=== PATIENT | male | born 1985 | race Caucasian/White ===

== ENCOUNTER 2016-10-26 18:57 | Emergency (ER) | payer OTHER ==
[~2016-10-26] VITALS: Ht 172.7 cm; Wt 152.0 kg
[~2016-10-26 18:57] MED LIST: CLIN-73 PO; CLON-379 PO; HYDR-3498 PO; HYDR-906 PO; IBUP-1542 PO; LORA1TAB PO
[2016-10-26 19:03] VITALS: Ht 172.7 cm; Wt 152.0 kg
[2016-10-26] MEDS ORDERED: IBUP-1542 PO (19:44)
[2016-10-26] MEDS ORDERED: CLIN-73 PO (19:44)
--- NOTE | 2016-10-26 19:51 | ERD ---
ER Documentation Chief Complaint Date/Time DATE: 10/26/16 TIME: 19:46 Chief Complaint abscess inner right thight x 1 week ago; no fever complaint HPI 31-year-old male presents here in emergency department for complaints of bumps redness and swelling the bilateral thigh area, patient has history of heroin drug abuse, injected on both thighs. Started having redness and swelling one week ago. Describes the pain as throbbing pain, 6/10 accompanied with erythema, worst upon touching the area. Patient denies any fever or chills. Patient did not take any medication for pain. Patient has the same type of symptoms before, diagnosed of a soft tissue abscess. Patient states the clindamycin helped him before. ROS All systems reviewed and are negative except as per history of present illness. Medications Home Meds Active Scripts Ibuprofen* (Motrin*) 600 Mg Tab, 600 MG PO Q6H Y for PAIN AND OR ELEVATED TEMP, #30 TAB Prov:DIEGO PADRON NP 10/26/16 Clindamycin Hcl* (Clindamycin Hcl*) 300 Mg Capsule, 300 MG PO TID for 10 Days, CAP Prov:DIEGO PADRON NP 10/26/16 Clindamycin Hcl* (Clindamycin Hcl*) 300 Mg Capsule, 300 MG PO TID for 10 Days, CAP Prov:DIEGO PADRON NP 04/27/16 Hydrocodone/Acetaminophen ([place] 5-325 Tablet) 1 Each Tablet, 1 TAB PO Q6H Y for PAIN, #7 TAB Prov:DIEGO PADRON NP 04/27/16 Ibuprofen* (Motrin*) 600 Mg Tab, 600 MG PO Q6H Y for PAIN AND OR ELEVATED TEMP, #30 TAB Prov:DIEGO PADRON NP 04/27/16 Clonidine Hcl* (Clonidine Hcl*) 0.1 Mg Tab, 0.1 MG PO Q6 Y for CONTROL WITHDRAWAL SYMPTOMS, #20 TAB Prov:AISSATOU LEE 03/22/16 Lorazepam* (Lorazepam*) 1 Mg Tablet, 1 MG PO Q8H Y for ANXIETY, #20 TAB Prov:AISSATOU LEE 03/22/16 Hydrocodone Bit-Acetaminophen* ([place]*) 5-325 Mg Tab, 1 TAB PO Q6 Y for PAIN, # 20 TAB Prov:PATRICIO HARDY I. CAMP COORDINATOR 08/11/15 Clindamycin Hcl* (Clindamycin Hcl*) 300 Mg Capsule, 450 MG PO TID for 10 Days, CAP Prov:PATRICIO HARDY I. CAMP COORDINATOR 08/11/15 Allergies Allergies: Coded Allergies: No Known Drug Allergy (Verified Allergy, Mild, 08/13/11) PMhx/Soc Medical and Surgical Hx: pt denies Medical Hx, pt denies Surgical Hx History of Surgery: No Anesthesia Reaction: No Hx Neurological Disorder: No Hx Respiratory Disorders: No Hx Cardiac Disorders: No Hx Psychiatric Problems: No Hx Miscellaneous Medical Probl: No Hx Alcohol Use: No Hx Substance Use: Yes Hx Tobacco Use: Yes Smoking Status: Heavy tobacco smoker FmHx Family History: No coronary disease, No diabetes, No other Physical Exam Vitals Vital Signs Date Time Temp Pulse Resp B/P Pulse Ox O2 Delivery O2 Flow Rate FiO2 10/26/16 19:03 97.7 83 18 182/105 98 Physical Exam GENERAL: The patient is well developed and appropriate for usual state of health, in no apparent distress. CHEST: Clear to auscultation bilaterally. There are no rales, wheezes or rhonchi. HEART: Regular rate and rhythm. No murmurs, clicks, rubs or gallops. No S3 or S4. ABDOMEN: Soft, nontender and nondistended. Good bowel sounds. No rebound or guarding. No gross peritonitis. No gross organomegaly or masses. No Schwarz sign or McBurney point tenderness. BACK: No midline or flank tenderness. EXTREMITIES: Equal pulses bilaterally. There is no peripheral clubbing, cyanosis or edema. No focal swelling or erythema. Full range of motion. Grossly neurovascularly intact. NEURO: Alert and oriented. Cranial nerves 2-12 intact. Motor strength in all 4 extremities with 5/5 strength. Sensation grossly intact. Normal speech and gait. SKIN: Erythema and induration noted on bilateral thigh area nonfluctuant at this time, tender on palpation. There is no apparent rash or petechia. The skin is warm and dry. HEMATOLOGIC AND LYMPHATIC: There is no evidence of excessive bruising or lymphedema. No gross cervical, axillary, or inguinal lymphadenopathy. Results 24 hrs Current Medications Medications (Trade) Dose Ordered Sig/Cherri Route PRN Reason Start Time Stop Time Status Last Admin Dose Admin Clindamycin Phosphate (Cleocin) 600 mg ONCE ONCE IM 10/26/16 20:00 10/26/16 20:01 Clindamycin was given here in emergency department, tolerated medication well. Procedures/MDM Medical decision making: Patient's symptoms most likely consistent with a soft tissue abscess, this time, incision and drainage not indicated at this time, not fluctuant, patient was advised to return in 2 days for reevaluation of symptoms, patient was given antibiotics, no symptoms of neurovascular compromise , sepsis, no symptoms of DVT. Patient was given for clindamycin, ibuprofen, return in 2 days for reevaluation of symptoms. Patient was advised to return to emergency department for any worsening symptoms. Departure Diagnosis: Primary Impression: Soft tissue abscess Condition: Stable Patient Instructions: Abscess, Antiobiotic Treatment Only Additional Instructions: avoid injecting heroin on affected area, take meds, return in 2 days DIEGO PADRON NP Oct 26, 2016 19:51
[2016-10-26] MEDS ORDERED: CLINDAMYCIN 300 MG INJ IM ONE (20:00)
== END 2016-10-26 20:43 | disposition home or self-care (01) ==
LOC: FTE 18:57
DX: L02.416 Cutaneous abscess of left lower limb (principal); L02.415 Cutaneous abscess of right lower limb; F17.210 Nicotine dependence, cigarettes, uncomplicated
CPT/HCPCS: 96372; Z7502; Z7610

== ENCOUNTER 2016-11-13 16:11 | Emergency (ER) | payer SELFPAY ==
[~2016-11-13] VITALS: Ht 172.7 cm; Wt 145.0 kg
[2016-11-13 16:14] VITALS: Ht 172.7 cm; Wt 145.0 kg
== END 2016-11-13 20:54 | disposition left against medical advice (07) ==
LOC: E/R 16:11
DX: Z53.21 Procedure and treatment not carried out due to patient leaving prior to being seen by health care provider (principal)

== ENCOUNTER 2017-03-09 11:44 | Inpatient (IN) | payer OTHER ==
[~2017-03-09] VITALS: Ht 172.7 cm; Wt 170.5 kg
[2017-03-09] VITALS (28 sets, daily range): BP systolic 95–141; BP diastolic 54–124; PULSE 56–192; RESP 14–26; TEMP 98.1; Ht 172.7 cm; Wt 170.5 kg
[2017-03-09] MEDS ORDERED: SOD CHLORIDE 0.9% 1,000 ML IV STA (11:57)
[2017-03-09] MEDS ORDERED: PROCAINAMIDE IV ONE ×3 (12:00→14:00)
[2017-03-09] MEDS ORDERED: DEXTROSE 5% IV ONE ×3 (12:00→14:00)
[2017-03-09] MEDS ORDERED: MAGNESIUM SULFATE 2 GM/50 ML 50 ML IVPB ONE (13:00)
[2017-03-09] MEDS ORDERED: METH40TA PO (13:01)
[2017-03-09 13:02] LABS: BASOPHIL # 0.1 10^3/ul (0.0-0.1); BASOPHILS % 0.6 % (0.0-2.0); EOSINOPHILS # 0.1 10^3/ul (0.0-0.5); HEMATOCRIT 50.4 % (42.0-52.0); HEMOGLOBIN 16.3 g/dl (14.0-18.0); LYMPHOCYTES # 3.3 10^3/ul (0.8-2.9); LYMPHOCYTES % 27.2 % (15.0-51.0); MEAN CORPUSCULAR HEMOGLOBIN 29.1 pg (29.0-33.0); MEAN CORPUSCULAR HGB CONC 32.3 g/dl (32.0-37.0); MEAN CORPUSCULAR VOLUME 89.8 fl (82.0-101.0); MEAN PLATELET VOLUME 10.7 fl (7.4-10.4); MONOCYTE # 1.1 10^3/ul (0.3-0.9); MONOCYTES % 9.2 % (0.0-11.0); NEUTROPHIL # 7.4 10^3/ul (1.6-7.5); NEUTROPHILS % 61.7 % (39.0-77.0); PLATELET COUNT 284 10^3/UL (140-415); RED BLOOD COUNT 5.61 10^6/ul (4.70-6.10); RED CELL DISTRIBUTION WIDTH 13.8 % (11.5-14.5); WHITE BLOOD COUNT 11.9 10^3/ul (4.8-10.8)
[2017-03-09 13:17] LABS: PROTIME 13.2 Sec (12.2-14.2)
[2017-03-09 13:24] LABS: ANION GAP 17 (8-16); BLOOD UREA NITROGEN 12 mg/dl (7-20); CALCIUM 9.5 mg/dl (8.4-10.2); CARBON DIOXIDE 29 mmol/L (21-31); CHLORIDE 102 mmol/L (97-110); CREATININE 0.81 mg/dl (0.61-1.24); GLUCOSE 86 mg/dl (70-220); POTASSIUM 3.7 mmol/L (3.5-5.1); SODIUM 144 mmol/L (135-144)
[2017-03-09] MEDS ORDERED: LORAZEPAM 2 MG INJ IV ONE ×2 (13:30→16:30)
[2017-03-09 13:39] LABS: TROPONIN-I < 0.012 ng/ml (0.00-0.12)
--- NOTE | 2017-03-09 14:21 | ERA ---
ER Documentation Chief Complaint Date/Time DATE: 03/09/17 TIME: 14:13 Chief Complaint drove self here, c/o heart palpitations since 0900 today, pt a&ox4 ROS All systems reviewed and are negative except as per history of present illness. Medications Home Meds Reported Medications Methadone Hcl (Methadone Hcl) 40 Mg Tablet.jose luis, 80 MG PO, TAB 03/09/17 Discontinued Scripts Ibuprofen* (Motrin*) 600 Mg Tab, 600 MG PO Q6H Y for PAIN AND OR ELEVATED TEMP, #30 TAB Prov:DIEGO PADRON LIGHT INDUSTRIAL 10/26/16 Clindamycin Hcl* (Clindamycin Hcl*) 300 Mg Capsule, 300 MG PO TID for 10 Days, CAP Prov:DIEGO PADRON NP 10/26/16 Clindamycin Hcl* (Clindamycin Hcl*) 300 Mg Capsule, 300 MG PO TID for 10 Days, CAP Prov:DIEGO PADRON NP 04/27/16 Hydrocodone/Acetaminophen ([place] 5-325 Tablet) 1 Each Tablet, 1 TAB PO Q6H Y for PAIN, #7 TAB Prov:DIEGO PADRON NP 04/27/16 Ibuprofen* (Motrin*) 600 Mg Tab, 600 MG PO Q6H Y for PAIN AND OR ELEVATED TEMP, #30 TAB Prov:DIEGO PADRON LIGHT INDUSTRIAL 04/27/16 Clonidine Hcl* (Clonidine Hcl*) 0.1 Mg Tab, 0.1 MG PO Q6 Y for CONTROL WITHDRAWAL SYMPTOMS, #20 TAB Prov:AISSATOU LEE 03/22/16 Lorazepam* (Lorazepam*) 1 Mg Tablet, 1 MG PO Q8H Y for ANXIETY, #20 TAB Prov:AISSATOU LEE 03/22/16 Hydrocodone Bit-Acetaminophen* ([place]*) 5-325 Mg Tab, 1 TAB PO Q6 Y for PAIN, # 20 TAB Prov:PATRICIO HARDY I. LIGHT INDUSTRIAL 08/11/15 Clindamycin Hcl* (Clindamycin Hcl*) 300 Mg Capsule, 450 MG PO TID for 10 Days, CAP Prov:PATRICIO HARDY I. LIGHT INDUSTRIAL 08/11/15 Allergies Allergies: Coded Allergies: No Known Drug Allergy (Verified Allergy, Mild, 03/09/17) PMhx/Soc History of Surgery: No Anesthesia Reaction: No Hx Neurological Disorder: No Hx Respiratory Disorders: No Hx Cardiac Disorders: No (IRREGULAR HEART RATE) Hx Psychiatric Problems: No Hx Miscellaneous Medical Probl: No Hx Alcohol Use: No Hx Substance Use: Yes (HEROIN, METADONE) Hx Tobacco Use: Yes Smoking Status: Current every day smoker Physical Exam Vitals Vital Signs Date Time Temp Pulse Resp B/P Pulse Ox O2 Delivery O2 Flow Rate FiO2 03/09/17 14:30 98.1 180 20 150/106 100 Room Air 03/09/17 14:00 98.1 160 29 141/99 100 Room Air 03/09/17 13:00 204 29 144/133 100 Room Air 03/09/17 12:45 171 24 143/127 100 Room Air 03/09/17 12:30 174 17 138/108 100 Room Air 03/09/17 12:00 98.1 177 21 148/118 100 Physical Exam Const: [] Head: Atraumatic Eyes: Normal Conjunctiva ENT: Normal External Ears, Nose and Mouth. Neck: Full range of motion..~ No meningismus. Resp: Clear to auscultation bilaterally Cardio: Regular rate and rhythm, no murmurs Abd: Soft, non tender, non distended. Normal bowel sounds Skin: No petechiae or rashes Back: No midline or flank tenderness Ext: No cyanosis, or edema Neur: Awake and alert Psych: Normal Mood and Affect Result Diagram: 03/09/17 1235 03/09/17 1235 Results 24 hrs Laboratory Tests Test 03/09/17 12:35 03/09/17 13:23 White Blood Count 11.910^3/ul Red Blood Count 5.6110^6/ul Hemoglobin 16.3g/dl Hematocrit 50.4% Mean Corpuscular Volume 89.8fl Mean Corpuscular Hemoglobin 29.1pg Mean Corpuscular Hemoglobin Concent 32.3g/dl Red Cell Distribution Width 13.8% Platelet Count 63149^3/UL Mean Platelet Volume 10.7fl Neutrophils % 61.7% Lymphocytes % 27.2% Monocytes % 9.2% Eosinophils % 1.0% Basophils % 0.6% Nucleated Red Blood Cells % 0.0/100WBC Neutrophils # 7.410^3/ul Lymphocytes # 3.310^3/ul Monocytes # 1.110^3/ul Eosinophils # 0.110^3/ul Basophils # 0.110^3/ul Nucleated Red Blood Cells # 0.010^3/ul Prothrombin Time 13.2Sec Prothrombin Time Ratio 1.0 INR International Normalized Ratio 1.00 Activated Partial Thromboplast Time 26.0Sec Sodium Level 144mmol/L Potassium Level 3.7mmol/L Chloride Level 102mmol/L Carbon Dioxide Level 29mmol/L Anion Gap 17 Blood Urea Nitrogen 12mg/dl Creatinine 0.81mg/dl Glucose Level 86mg/dl Calcium Level 9.5mg/dl Troponin I < 0.012ng/ml Urine Opiates Screen Positive Urine Barbiturates Negative Urine Amphetamines Screen Positive Urine Benzodiazepines Screen Negative Urine Cocaine Screen Negative Urine Cannabinoids Positive Current Medications Medications (Trade) Dose Ordered Sig/Cherri Route PRN Reason Start Time Stop Time Status Last Admin Dose Admin Sodium Chloride 1,000 ml @ 1,000 mls/hr Q1H STAT IV 03/09/17 11:57 03/09/17 12:56 DC 03/09/17 12:18 Procaine HCl 100 mg/Dextrose 50.2 ml @ 100.4 mls/ hr ONCE ONCE IV 03/09/17 12:00 03/09/17 12:29 Cancel Procaine HCl 1500 mg/Dextrose 53 ml @ 100.4 mls/ hr ONCE ONCE IV 03/09/17 12:12 03/09/17 12:31 DC 03/09/17 12:22 Magnesium Sulfate 50 ml @ 25 mls/hr ONCE ONCE IVPB 03/09/17 13:00 03/09/17 14:59 DC 03/09/17 12:55 Diltiazem HCl (Cardizem-D5W 125 Mg/125 ml Drip) 125 ml @ 5 mls/hr TITRATE IV 03/09/17 13:30 03/09/17 14:45 Lorazepam 1 mg 1 mg ONCE ONCE IV 03/09/17 13:30 03/09/17 13:31 DC 03/09/17 13:26 Procaine HCl/ Dextrose (Procainamide/ D5W) 51.6 ml @ 103.2 mls/ hr ONCE ONCE IV 03/09/17 14:00 03/09/17 14:29 DC 03/09/17 13:54 Procedures/MDM EMERGENT LABS AND DIAGNOSTIC STUDIES: Lab Results above were reviewed and interpreted by me. CBC: Mild leukocytosis BMP: No evidence of electrolyte abnormality, renal failure, hypoglycemia Troponin within normal limits urine drug screen pending 12-lead EKG was interpreted by Peggy Brady MD: A. fib with RVR with short runs of nonsustained ventricular tachycardia No acute ST or T wave changes suggestive of acute ischemia or STEMI. Radiology Results as interpreted by Radiology below were reviewed by Henry Brady MD: Chest x-ray shows low lung volumes with bibasilar atelectasis, no other acute abnormalities Initial Nursing notes reviewed. Previous Medical Records requested via the Electronic Health Record. EMERGENCY DEPARTMENT COURSE / MEDICAL DECISION MAKING: Patient is presenting with atrial fibrillation with RVR and short runs of ventricular tachycardia. Given his history and his EKG, I have a suspicion for underlying WPW. 2 large-bore IVs were placed. Defibrillator pads were placed. Patient was started on IV fluids. His blood pressure is within normal limits , so he is stable. Chest x-ray did not show evidence of acute heart failure. Troponin was within normal limits. Patient's tachycardia is likely secondary to the fact that he already has some electrophysiologic problem in his heart in addition to his excessive caffeine use today and cocaine use. Given my concern for WPW, procainamide 15 milligrams per kilogram load was given. I spoke with Dr. Encarnacion, the advertising rep on-call, who recommended a diltiazem drip. I voiced to him my concerns about this as AV tiesha blockade may throw the patient into VT or VF. However he thinks that it is likely safe. Patient has been started on diltiazem drip and responding appropriately. Patient will need admission to the ICU for further workup and management. Accepting Care Team: Current data and ongoing care discussed. Time: Time of admission Primary Provider: Dr. Ramiro Oseguera Consulting: Dr. Encarnacion Outstanding Data: Drug screen Critical Care Time: 50 minutes Treatments/Evaluations: Close monitoring and treatment of unstable vital signs, cardiorespiratory, and neurologic status, while maintaining tight balance of fluid, respiratory, and cardiac interventions. This time includes discussing the case with the patient and the patients family. This time does not include all procedures stated elsewhere in this record. This time also includes reviewing old records, labs and radiological studies. This time includes examining and re-examining the patient. Additionally, this time also includes arranging care with admitting and consulting physicians. Departure Diagnosis: Primary Impression: Ventricular tachyarrhythmia Additional Impressions: Atrial fibrillation with RVR Caffeine overdose Condition: Critical BRANDY BRADY MD Mar 09, 2017 14:21
[2017-03-09] MEDS: DILTIAZEM-D5W 125MG/125ML DRIP 125 ML IV SCH (14:45)
[2017-03-09 15:08] LABS: BARBITURATES Negative (NEGATIVE); BENZODIAZEPINES Negative (NEGATIVE); CANNABINOIDS Positive (NEGATIVE); COCAINE Negative (NEGATIVE); OPIATES Positive (NEGATIVE)
--- NOTE | 2017-03-09 15:46 | CONS ---
Date/Time of Note Date/Time of Note DATE: 03/09/17 TIME: 15:40 Assessment/Plan Assessment/Plan Chief Complaint/Hosp Course 1. Afib with RVR 2. NSVT 3. HTN 4. Drug including cocaine use 5. smoker 6./ obesity. Recommendations: I will continue with a Cardizem drip and adjusted increase the dose. Beta- yoni will be initiated. To be correct as needed thyroid function test will be checked as well bradycardia has been ordered to be done as the number personally reviewed. I will also give the patient digoxin for control heart rate better. We will continue to closely monitor him in the ICU. More than 40 minutes critical care time was measured at this patient excluding procedures. Problems: Consultation Date/Type/Reason Admit Date/Time Date of Consultation: Mar 09, 2017 Type of Consultation: CARDIOLOGY Reason for Consultation arrhythmia Referring Provider: BRANDY LUCAS MD Hx of Present Illness Thank you for this referral. This is a 30-year-old gentleman with history of drug abuse, previously and he remained currently on methadone, history of positive palpitation as a child, as well as obesity who came to emergency room with complaint of palpitation. Patient said last night he "partied a lot and went to the Street bar" he has had alcohol as well as cocaine last night. This morning it was time he also had multiple cups of coffee as well. He was elbowed when he felt tired fatigue and palpitation came to emergency room. In the emergency room was noted to be tachycardia. He has had multiple runs of nonsustained V. tach episodes appear to be atrial fibrillation with rapid ventricular response. Patient was given procainamide by ER physician with no help. After discussion with me was started on Cardizem. He is still in atrial fibrillation heart is elevated but blood pressure has improved now. Medication At Home: He is on methadone per his report. He also has been taking weight loss pills which has been getting up from his father Social history: He does actively smokes. He does not use alcohol. He has used cocaine last night. He has been ex-heroin user which says that he has quit over the past 4 months. Is currently taking methadone. Past medical history as above only for his obesity. He denies all others to Family history denies any eloquently artery disease. Review of system as above only. He said that he is also lost weight recently due to the weight loss pills Social History Smoking Status: Current every day smoker Exam/Review of Systems Vital Signs Vitals Vital Signs Date Time Temp Pulse Resp B/P Pulse Ox O2 Delivery O2 Flow Rate FiO2 03/09/17 14:30 98.1 180 20 150/106 100 Room Air Exam General: no acute distress. obese. HEENT: NC/AT. pupils are equal. round. NECK: NO JVD. no stridor. CV: irregularly irregular. . systolic murmur; no gallop or rubs. PULM: no wheezing or rhonchi. GI: SOFT, obese. NT, ND, no rebound or guarding Extremity: trace B/L LE edema. no clubbing. neuro: awake and alert, OX3. Psych: calm and pleasant rectal: deferred : normal ECG reviewed; AFIB RVR, wiht runs of NSVT Results Result Diagram: 03/09/17 1235 03/09/17 1235 Results 24 hrs Laboratory Tests Test 03/09/17 12:35 03/09/17 13:23 White Blood Count 11.9 H Red Blood Count 5.61 Hemoglobin 16.3 Hematocrit 50.4 Mean Corpuscular Volume 89.8 Mean Corpuscular Hemoglobin 29.1 Mean Corpuscular Hemoglobin Concent 32.3 Red Cell Distribution Width 13.8 Platelet Count 284 Mean Platelet Volume 10.7 #H Neutrophils % 61.7 Lymphocytes % 27.2 Monocytes % 9.2 Eosinophils % 1.0 Basophils % 0.6 Nucleated Red Blood Cells % 0.0 Neutrophils # 7.4 Lymphocytes # 3.3 H Monocytes # 1.1 H Eosinophils # 0.1 Basophils # 0.1 Nucleated Red Blood Cells # 0.0 Prothrombin Time 13.2 Prothrombin Time Ratio 1.0 INR International Normalized Ratio 1.00 Activated Partial Thromboplast Time 26.0 Sodium Level 144 Potassium Level 3.7 Chloride Level 102 Carbon Dioxide Level 29 Anion Gap 17 H Blood Urea Nitrogen 12 Creatinine 0.81 Glucose Level 86 Calcium Level 9.5 Troponin I < 0.012 Urine Opiates Screen Positive Urine Barbiturates Negative Urine Amphetamines Screen Positive Urine Benzodiazepines Screen Negative Urine Cocaine Screen Negative Urine Cannabinoids Positive Medications Medications Current Medications Diltiazem HCl (Cardizem-D5W 125 Mg/125 ml Drip) 125 ml @ 5 mls/hr TITRATE IV Last administered on 03/09/17t 14:45; Admin Dose 5 MLS/HR; Start 03/09/17 at 13: 30 RENÉE SAMAYOA MD Mar 09, 2017 15:46
[2017-03-09] MEDS ORDERED: MAGNESIUM HYDROXIDE 30ML CUP PO PRN (16:00)
[2017-03-09] MEDS ORDERED: NITROGLYCERIN (SL) 0.4 MG TAB SL PRN (16:00)
[2017-03-09] MEDS ORDERED: morphine 2 MG INJ IV PRN (16:00)
[2017-03-09] MEDS ORDERED: ONDANSETRON 4 MG INJ IV PRN (16:00)
[2017-03-09] MEDS ORDERED: NACL 0.9% 3 ML SYG IV SCH (16:00)
[2017-03-09] MEDS ORDERED: DOCUSATE SODIUM 100 MG CAP PO PRN (16:00)
[2017-03-09] MEDS ORDERED: DIGOXIN 500 MCG INJ IV ONE (16:00)
[2017-03-09] MEDS ORDERED: LORAZEPAM 2 MG INJ IV PRN ×2 (16:00→17:00)
[2017-03-09] MEDS ORDERED: ALBUTEROL/IPRATROPIUM (NEB) 3 ML AMP HHN PRN (16:00)
[2017-03-09] MEDS ORDERED: HYDROCODONE/APAP (5/325) TAB PO PRN (16:00)
[2017-03-09] MEDS ORDERED: ACETAMINOPHEN 325 MG TAB PO PRN (16:00)
[2017-03-09] MEDS ORDERED: AMIODARONE 900 MG in DEXTROSE 5% 482 ML IV SCH ×2 (16:00→19:30)
[2017-03-09] MEDS ORDERED: NA PHOSPHATE/BIPHOS 133 ML ENEMA PR PRN (16:00)
[2017-03-09] MEDS ORDERED: PROPRANOLOL 20 MG TAB PO ONE (16:00)
[2017-03-09] MEDS ORDERED: hydrALAzine 20 MG INJ IV PRN (16:00)
--- NOTE | 2017-03-09 16:22 | HP ---
Date/Time of Note Date/Time of Note DATE: 03/09/17 TIME: 16:18 Assessment/Plan VTE Prophylaxis VTE Prophylaxis Intervention: heparin Lines/Catheters IV Catheter Type (from [facility]): Saline Lock Assessment/Plan Chief Complaint/Hosp Course Assessment and plan: 32-year-old male coming in with palpitations, U tox positive for cocaine, methamphetamine, opiates, with signs of non-sustained V. tach, A. fib with RVR, hypertensive urgency, on Cardizem drip. 1. Palpitations: Likely secondary to patient's drug toxicity, particularly cocaine is thought to be the culprit here. U tox also positive for amphetamines and opiates. Patient does take methadone as outpatient. -Continue Cardizem IV drip per cardiology recommendations, as well as digoxin. Avoid beta blockers. -For now we will increase Ativan to q one hour as needed agitation, and consider phentolamine given cocaine toxicity as well -Monitor for any further arrhythmias in the intensive care unit for now, continue to monitor heart rate and blood pressure very carefully -Monitor for signs of withdrawal, continue IV fluids. Also check TSH, A1c, lipid panel. -Antiemetics as needed -Hold methadone for now 2. 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 GI prophylaxis: PPI Problems: HPI/ROS Admit Date/Time Admit Date/Time Hx of Present Illness 30-year-old gentleman with past medical history of drug abuse, on methadone, history of positive palpitation as a child, "heart condition " as well as obesity who came to emergency room with complaint of palpitation. Apparently patient said last night he "partied a lot and went to the Street bar" he has had alcohol as well as cocaine last night. This morning he also had multiple cups of coffee as well. Patient felt palpitations came to emergency room. In the emergency room was noted to be tachycardia. He has had multiple runs of nonsustained V. tach episodes and appeared to be in atrial fibrillation with rapid ventricular response. Patient was given procainamide by ER physician with no help. After discussion with cardiology consult he was started on Cardizem. His blood pressure has improved now, but his diastolic blood pressure still significantly elevated. Denied any upper or lower GI bleeding, fever chills, frequency or dysuria or hematuria, no abdominal pain, no headaches. PMH/Family/Social Past Surgical History Past Surgical Hx: other (Hand surgery) Family History Significant Family History: other (Mother: Diabetes, hypertension) Social History Alcohol Use: none Smoking Status: Current every day smoker Drug Use: cocaine, other (Methamphetamine, opiates) Exam/Review of Systems Vital Signs Vitals Vital Signs Date Time Temp Pulse Resp B/P Pulse Ox O2 Delivery O2 Flow Rate FiO2 03/09/17 15:15 148 20 130/105 98 Room Air 03/09/17 15:00 98.1 Exam Exam General: Lying in bed, trying to talk on cell phone, no acute distress HEENT: Pupils equal round reactive to light, extraocular muscles are intact Neck: Supple Cardiovascular: S1-S2 heard, tachycardic heart rate Respiratory: Slightly distant breath sounds bilaterally Abdomen: Nontender, nondistended, soft, no rebound or guarding Muscular skeletal: No lower extremity edema bilaterally Neurologic: No focal deficits Labs Result Diagram: 03/09/17 1235 03/09/17 1235 Medications Medications Current Medications Diltiazem HCl (Cardizem-D5W 125 Mg/125 ml Drip) 125 ml @ 5 mls/hr TITRATE IV Last administered on 03/09/17t 14:45; Admin Dose 5 MLS/HR; Start 03/09/17 at 13: 30 Ondansetron HCl (Zofran Inj) 4 mg Q6H PRN IV NAUSEA AND/OR VOMITING; Start at 16:00; Status UNV Acetaminophen (Tylenol Tab) 650 mg Q6H PRN PO PAIN LEVEL 1-3 OR FEVER; Start at 16:00; Status UNV Acetaminophen/ Hydrocodone Bitart ([place] (5/325)) 1 tab Q6H PRN PO MODERATE PAIN LEVEL 4-6; Start 03/09/17 at 16:00; Status UNV Morphine Sulfate (morphine) 2 mg Q4H PRN IV SEVERE PAIN LEVEL 7-10; Start 03/09 at 16:00; Status UNV Docusate Sodium (Colace) 100 mg Q12H PRN PO CONSTIPATION; Start 03/09/17 at 16: 00; Status UNV Magnesium Hydroxide (Milk Of Mag) 30 ml DAILY PRN PO CONSTIPATION; Start at 16:00; Status UNV Sodium Biphosphate/ Sodium Phosphate (Fleet Enema) 133 ml DAILY PRN MD CONSTIPATION; Start 03/09/17 at 16:00; Status UNV Pantoprazole (Protonix Iv) 40 mg DAILY@06 IV ; Start 03/10/17 at 06:00; Status UNV Heparin Sodium (Porcine) 5000 unit 5,000 unit Q12 SC ; Start 03/09/17 at 21:00; Status UNV Sodium Chloride (NS) 1,000 ml @ 100 mls/hr Q10H IV ; Start 03/09/17 at 15:56; Status UNV Hydralazine HCl (Apresoline) 10 mg Q6H PRN IV ELEVATED BLOOD PRESSURE; Start at 16:00; Status UNV Nitroglycerin (Nitroglycerin (Sl Tab) 0.4 Mg) 1 tab Q5M PRN SL ANGINA; Start at 16:00; Status UNV Lorazepam (Ativan) 1 mg ONCE ONCE IV ; Start 03/09/17 at 16:30; Stop 03/09/17 at 16:31; Status UNV Lorazepam (Ativan) 1 mg Q1H PRN IV ANXIETY; Start 03/09/17 at 17:00; Status UNV MARGARITA JAIME Mar 09, 2017 16:22
[2017-03-09 16:26] LABS: HAAIG REFLEX REFLEX FILED
[2017-03-09] MEDS: SOD CHLORIDE 0.9% 1,000 ML IV SCH (16:34)
[2017-03-09 16:49] LABS: CREATINE KINASE 79 IU/L (23-200)
[2017-03-09 16:50] LABS: ALANINE AMINOTRANSFERASE 131 IU/L (13-69); ALBUMIN 4.2 g/dl (3.3-4.9); ALKALINE PHOSPHATASE 89 IU/L (42-121); ANION GAP 18 (8-16); ASPARTATE AMINO TRANSFERASE 87 IU/L (15-46); BILIRUBIN,INDIRECT 0.5 mg/dl (0-1.1); BILIRUBIN,TOTAL 0.5 mg/dl (0.2-1.3); BLOOD UREA NITROGEN 9 mg/dl (7-20); CALCIUM 8.9 mg/dl (8.4-10.2); CARBON DIOXIDE 26 mmol/L (21-31); CHLORIDE 103 mmol/L (97-110); CREATINE KINASE 75 IU/L (23-200); CREATININE 0.58 mg/dl (0.61-1.24); GLUCOSE 91 mg/dl (70-220); MAGNESIUM 2.4 mg/dl (1.7-2.5); POTASSIUM 4.1 mmol/L (3.5-5.1); SODIUM 143 mmol/L (135-144); TOTAL PROTEIN 9.4 g/dl (6.1-8.1)
[2017-03-09 16:56] LABS: ETHANOL < 10.0 mg/dl
[2017-03-09 17:02] LABS: CK-MB 0.88 ng/ml (0.0-2.4); TROPONIN-I < 0.012 ng/ml (0.00-0.12)
[2017-03-09 17:27] LABS: THYROID STIMULATING HORMONE 0.891 MIU/L (0.465-4.680)
[2017-03-09 17:41] LABS: HEPATITIS B CORE ANTIBODY NEGATIVE (NEGATIVE)
[2017-03-09 17:42] LABS: INR 1.03; PROTIME 13.5 Sec (12.2-14.2); PT RATIO 1.1
[2017-03-09 17:43] LABS: PARTIAL THROMBOPLASTIN TIME 27.5 Sec (25.0-35.0)
[2017-03-09] MEDS ORDERED: AMIODARONE 150MG/D5W BOLUS 100 ML ONE (18:41)
[2017-03-09] MEDS ORDERED: AMIODARONE 150MG/D5W BOLUS 100 ML IV ONE (19:00)
[2017-03-09] MEDS: PROPRANOLOL 20 MG TAB PO SCH (20:05)
[2017-03-09] MEDS: HEPARIN 5,000 UNIT/0.5 ML VIAL SC SCH (20:16)
[2017-03-09 23:19] LABS: CREATINE KINASE 60 IU/L (23-200)
[2017-03-09 23:33] LABS: CK-MB 0.96 ng/ml (0.0-2.4); TROPONIN-I < 0.012 ng/ml (0.00-0.12)
[2017-03-10] VITALS (27 sets, daily range): BP systolic 73–131; BP diastolic 57–89; PULSE 53–73; RESP 11–26
[2017-03-10] MEDS: DILTIAZEM-D5W 125MG/125ML DRIP 125 ML IV SCH (01:01)
[2017-03-10] MEDS: SOD CHLORIDE 0.9% 1,000 ML IV SCH (01:57)
[2017-03-10] MEDS ORDERED: METHADONE 10 MG TAB PO SCH ×2 (06:00→09:30)
[2017-03-10] MEDS ORDERED: PANTOPRAZOLE 40 MG INJ IV SCH (06:00)
[2017-03-10 06:20] LABS: BASOPHILS % 0.3 % (0.0-2.0); EOSINOPHILS # 0.1 10^3/ul (0.0-0.5); EOSINOPHILS % 1.3 % (0.0-7.0); HEMATOCRIT 43.3 % (42.0-52.0); HEMOGLOBIN 13.8 g/dl (14.0-18.0); LYMPHOCYTES # 2.4 10^3/ul (0.8-2.9); LYMPHOCYTES % 22.8 % (15.0-51.0); MEAN CORPUSCULAR HEMOGLOBIN 28.8 pg (29.0-33.0); MEAN CORPUSCULAR HGB CONC 31.9 g/dl (32.0-37.0); MEAN CORPUSCULAR VOLUME 90.4 fl (82.0-101.0); MEAN PLATELET VOLUME 11.1 fl (7.4-10.4); MONOCYTE # 0.9 10^3/ul (0.3-0.9); MONOCYTES % 8.3 % (0.0-11.0); NEUTROPHILS % 66.8 % (39.0-77.0); PLATELET COUNT 228 10^3/UL (140-415); RED BLOOD COUNT 4.79 10^6/ul (4.70-6.10); RED CELL DISTRIBUTION WIDTH 13.8 % (11.5-14.5); WHITE BLOOD COUNT 10.3 10^3/ul (4.8-10.8)
[2017-03-10 06:49] LABS: CHOL/HDL RATIO 4.8 RATIO
[2017-03-10 06:50] LABS: ALBUMIN 3.4 g/dl (3.3-4.9); BILIRUBIN,INDIRECT 0.5 mg/dl (0-1.1); BILIRUBIN,TOTAL 0.5 mg/dl (0.2-1.3); TOTAL PROTEIN 7.4 g/dl (6.1-8.1)
[2017-03-10 06:52] LABS: CREATINE KINASE 42 IU/L (23-200)
[2017-03-10 06:53] LABS: ALBUMIN 3.4 g/dl (3.3-4.9); ALBUMIN/GLOBULIN RATIO 0.85; BILIRUBIN,INDIRECT 0.5 mg/dl (0-1.1); BILIRUBIN,TOTAL 0.5 mg/dl (0.2-1.3); CALCIUM 8.5 mg/dl (8.4-10.2); CREATININE 0.66 mg/dl (0.61-1.24); POTASSIUM 4.1 mmol/L (3.5-5.1); TOTAL PROTEIN 7.4 g/dl (6.1-8.1)
[2017-03-10 06:57] LABS: MAGNESIUM 2.2 mg/dl (1.7-2.5); PHOSPHORUS 3.3 mg/dl (2.5-4.9)
[2017-03-10 07:09] LABS: CK-MB 0.84 ng/ml (0.0-2.4); TROPONIN-I < 0.012 ng/ml (0.00-0.12)
[2017-03-10 07:20] LABS: THYROID STIMULATING HORMONE 1.11 MIU/L (0.465-4.680)
[2017-03-10] MEDS: PROPRANOLOL 20 MG TAB PO SCH (09:00)
[2017-03-10] MEDS: HEPARIN 5,000 UNIT/0.5 ML VIAL SC SCH (09:14)
[2017-03-10] MEDS ORDERED: SOD CHLORIDE 0.45% 1,000 ML IV SCH (09:30)
--- NOTE | 2017-03-10 09:33 | PN ---
Date/Time of Note Date/Time of Note DATE: 03/10/17 TIME: 09:28 Assessment/Plan VTE Prophylaxis VTE Prophylaxis Intervention: heparin Lines/Catheters IV Catheter Type (from [facility]): Peripheral IV Urinary Cath still in place: Yes Reason Cath still needed: urinary retention Assessment/Plan Chief Complaint/Hosp Course Assessment and plan: 32-year-old male coming in with palpitations, U tox positive for cocaine, methamphetamine, opiates, with signs of non-sustained V. tach, A. fib with RVR, hypertensive urgency, on Cardizem drip. 1. Palpitations: Likely secondary to patient's drug toxicity, particularly cocaine is thought to be the culprit here. Less smpts now. U tox also positive for amphetamines and opiates. Patient does take methadone as outpatient. Bp and HR improved (actually showing signs of bradycardia). -f/u cardiology recommendations, Avoid beta blockers. - continue Ativan to q one hour as needed agitation, and consider phentolamine given cocaine toxicity as well - continue to monitor heart rate and blood pressure very carefully -Monitor for signs of withdrawal, continue IV fluids. F/u TSH, A1c, lipid panel. -Antiemetics as needed -restart lower dose of methadone today 2. Drug and smoking history: [employer] on cessation, and add nicotine patch -f/u social work consult 3. GI prophylaxis: PPI Critical care time spent on pt care today = 40 min. Problems: Subjective 24 Hr Interval Summary Free Text/Dictation Pt awake andd alert, tolerating diet. VS improved. Exam/Review of Systems Vital Signs Vitals Vital Signs Date Time Temp Pulse Resp B/P Pulse Ox O2 Delivery O2 Flow Rate FiO2 03/10/17 06:00 58 18 73/59 100 Nasal Cannula 2.0 03/10/17 04:00 98.0 Intake and Output 03/09/17 03/09/17 03/10/17 15:00 23:00 07:00 Intake Total 1100 ml 1134.9 ml 981.8 ml Output Total 130 ml 140 ml Balance 1100 ml 1004.9 ml 841.8 ml Exam General: Lying in bed, no acute distress HEENT: Pupils equal round reactive to light, extraocular muscles are intact Neck: Supple Cardiovascular: S1-S2 heard Respiratory: Slightly distant breath sounds bilaterally Abdomen: Nontender, nondistended, soft, no rebound or guarding Muscular skeletal: No lower extremity edema bilaterally Neurologic: No focal deficits Results Result Diagram: 03/10/17 0558 03/10/17 0558 Results 24 hrs Laboratory Tests Test 03/09/17 12:35 03/09/17 13:00 03/09/17 13:23 03/09/17 16:23 White Blood Count 11.9 H Red Blood Count 5.61 Hemoglobin 16.3 Hematocrit 50.4 Mean Corpuscular Volume 89.8 Mean Corpuscular Hemoglobin 29.1 Mean Corpuscular Hemoglobin Concent 32.3 Red Cell Distribution Width 13.8 Platelet Count 284 Mean Platelet Volume 10.7 #H Neutrophils % 61.7 Lymphocytes % 27.2 Monocytes % 9.2 Eosinophils % 1.0 Basophils % 0.6 Nucleated Red Blood Cells % 0.0 Neutrophils # 7.4 Lymphocytes # 3.3 H Monocytes # 1.1 H Eosinophils # 0.1 Basophils # 0.1 Nucleated Red Blood Cells # 0.0 Prothrombin Time 13.2 Prothrombin Time Ratio 1.0 INR International Normalized Ratio 1.00 Activated Partial Thromboplast Time 26.0 Sodium Level 144 143 Potassium Level 3.7 4.1 Chloride Level 102 103 Carbon Dioxide Level 29 26 Anion Gap 17 H 18 H Blood Urea Nitrogen 12 9 Creatinine 0.81 0.58 L Glucose Level 86 91 Calcium Level 9.5 8.9 Troponin I < 0.012 < 0.012 Thyroid Stimulating Hormone (TSH) 0.891 0.891 Urine Opiates Screen Positive Urine Barbiturates Negative Urine Amphetamines Screen Positive Urine Benzodiazepines Screen Negative Urine Cocaine Screen Negative Urine Cannabinoids Positive Magnesium Level 2.4 Total Bilirubin 0.5 Direct Bilirubin 0.00 Indirect Bilirubin 0.5 Aspartate Amino Transf (AST/SGOT) 87 H Alanine Aminotransferase (ALT/SGPT) 131 H Alkaline Phosphatase 89 Creatine Kinase 79 Creatine Kinase Index 1.1 Creatinine Kinase MB (Mass) 0.88 Total Protein 9.4 H Albumin 4.2 Globulin 5.20 H Albumin/Globulin Ratio 0.80 Free Thyroxine 1.21 Ethyl Alcohol Level < 10.0 Hepatitis B Surface Antigen NEGATIVE Hepatitis B Core Total Antibody NEGATIVE Hepatitis C Antibody REACTIVE H Test 03/09/17 17:00 03/09/17 22:35 03/10/17 05:58 Prothrombin Time 13.5 Prothrombin Time Ratio 1.1 INR International Normalized Ratio 1.03 Activated Partial Thromboplast Time 27.5 Creatine Kinase 60 42 Creatine Kinase Index 1.6 2.0 Creatinine Kinase MB (Mass) 0.96 0.84 Troponin I < 0.012 < 0.012 White Blood Count 10.3 Red Blood Count 4.79 Hemoglobin 13.8 L Hematocrit 43.3 Mean Corpuscular Volume 90.4 Mean Corpuscular Hemoglobin 28.8 L Mean Corpuscular Hemoglobin Concent 31.9 L Red Cell Distribution Width 13.8 Platelet Count 228 Mean Platelet Volume 11.1 H Neutrophils % 66.8 Lymphocytes % 22.8 Monocytes % 8.3 Eosinophils % 1.3 Basophils % 0.3 Nucleated Red Blood Cells % 0.0 Neutrophils # (Manual) 6.9 Lymphocytes # 2.4 Monocytes # 0.9 Eosinophils # 0.1 Basophils # 0.0 Nucleated Red Blood Cells # 0.0 Sodium Level 137 Potassium Level 4.1 Chloride Level 106 Carbon Dioxide Level 26 Anion Gap 9 # Blood Urea Nitrogen 11 Creatinine 0.66 Glucose Level 99 Calcium Level 8.5 Phosphorus Level 3.3 Magnesium Level 2.2 Total Bilirubin 0.5 Direct Bilirubin 0.00 Indirect Bilirubin 0.5 Aspartate Amino Transf (AST/SGOT) 68 H Alanine Aminotransferase (ALT/SGPT) 109 H Alkaline Phosphatase 59 B-Type Natriuretic Peptide 199 H Total Protein 7.4 Albumin 3.4 Globulin 4.00 H Albumin/Globulin Ratio 0.85 Triglycerides Level 64 Cholesterol Level 92 L LDL Cholesterol, Calculated 60 HDL Cholesterol 19 L Cholesterol/HDL Ratio 4.8 Thyroid Stimulating Hormone (TSH) 1.110 Medications Medications Current Medications Diltiazem HCl (Cardizem-D5W 125 Mg/125 ml Drip) 125 ml @ 5 mls/hr TITRATE IV Last administered on 03/10/17 01:01; Admin Dose 5 MLS/HR; Start 03/09/17 at 13: 30 Ondansetron HCl (Zofran Inj) 4 mg Q6H PRN IV NAUSEA AND/OR VOMITING Last administered on 03/10/17 09:12; Admin Dose 4 MG; Start 03/09/17 at 16:00 Acetaminophen (Tylenol Tab) 650 mg Q6H PRN PO PAIN LEVEL 1-3 OR FEVER; Start at 16:00 Acetaminophen/ Hydrocodone Bitart ([place] (5/325)) 1 tab Q6H PRN PO MODERATE PAIN LEVEL 4-6 Last administered on 03/09/17 20:21; Admin Dose 1 TAB; Start at 16:00 Morphine Sulfate (morphine) 2 mg Q4H PRN IV SEVERE PAIN LEVEL 7-10; Start 03/09 at 16:00 Docusate Sodium (Colace) 100 mg Q12H PRN PO CONSTIPATION; Start 03/09/17 at 16: 00 Magnesium Hydroxide (Milk Of Mag) 30 ml DAILY PRN PO CONSTIPATION; Start at 16:00 Sodium Biphosphate/ Sodium Phosphate (Fleet Enema) 133 ml DAILY PRN [place] CONSTIPATION; Start 03/09/17 at 16:00 Heparin Sodium (Porcine) (Heparin (5000 Units/0.5 ml)) 5,000 unit Q12 SC Last administered on 03/10/17 09:14; Admin Dose 5,000 UNIT; Start 03/09/17 at 21:00 Hydralazine HCl (Apresoline) 10 mg Q6H PRN IV ELEVATED BLOOD PRESSURE; Start at 16:00 Nitroglycerin (Nitroglycerin (Sl Tab) 0.4 Mg) 1 tab Q5M PRN SL ANGINA; Start at 16:00 Lorazepam 1 mg 1 mg Q1H PRN IV ANXIETY; Start 03/09/17 at 17:00 Amiodarone HCl/ Dextrose (Cordarone Iv/ D5W) 500 ml @ 0 mls/hr Q0M IV Last administered on 03/09/17 20:02; Admin Dose 33.3 MLS/HR; Start 03/09/17 at 19:30 ; Stop 03/10/17 at 19:29 Propranolol HCl (Inderal) 20 mg TID PO Last administered on 03/09/17 20:05; Admin Dose 20 MG; Start 03/09/17 at 21:00 Pantoprazole (Protonix Tab) 40 mg DAILY@06 PO ; Start 03/11/17 at 06:00 Methadone HCl 40 mg 40 mg DAILY PO ; Start 03/11/17 at 09:00; Status UNV Sodium Chloride (1/2 NS) 1,000 ml @ 75 mls/hr [id number] IV ; Start 03/10/17 at 09 :30; Stop 03/10/17 at 21:00; Status UNV MARGARITA JAIME Mar 10, 2017 09:33
[2017-03-11] MEDS ORDERED: PANTOPRAZOLE (EC) 40 MG TAB PO SCH (06:00)
--- NOTE | 2017-03-11 07:56 | DS ---
Date/Time of Note Date/Time of Note DATE: 03/11/17 TIME: 07:55 Discharge Summary Admission/Discharge Info Admit Date/Time Mar 09, 2017 at 16:07 Discharge Date/Time Mar 10, 2017 at 11:15 Discharge Diagnosis 1. palpitations sec to cocaine toxicity Hx of Present Illness 30-year-old gentleman with past medical history of drug abuse, on methadone, history of positive palpitation as a child, "heart condition " as well as obesity who came to emergency room with complaint of palpitation. Apparently patient said last night he "partied a lot and went to the [employer] bar" he has had alcohol as well as cocaine last night. This morning he also had multiple cups of coffee as well. Patient felt palpitations came to emergency room. In the emergency room was noted to be tachycardia. He has had multiple runs of nonsustained V. tach episodes and appeared to be in atrial fibrillation with rapid ventricular response. Patient was given procainamide by ER physician with no help. After discussion with cardiology consult he was started on Cardizem. His blood pressure has improved now, but his diastolic blood pressure still significantly elevated. Denied any upper or lower GI bleeding, fever chills, frequency or dysuria or hematuria, no abdominal pain, no headaches. Hospital Course pt left AMA. Home Meds Reported Medications Methadone Hcl (Methadone Hcl) 40 Mg Tablet.jose luis, 80 MG PO, TAB 03/09/17 Discontinued Scripts Ibuprofen* (Motrin*) 600 Mg Tab, 600 MG PO Q6H Y for PAIN AND OR ELEVATED TEMP, #30 TAB Prov:DIEGO PADRON NP 10/26/16 Clindamycin Hcl* (Clindamycin Hcl*) 300 Mg Capsule, 300 MG PO TID for 10 Days, CAP Prov:DIEGO PADRON NP 10/26/16 Clindamycin Hcl* (Clindamycin Hcl*) 300 Mg Capsule, 300 MG PO TID for 10 Days, CAP Prov:DIEGO PADRON [employer] 04/27/16 Hydrocodone/Acetaminophen ([place] 5-325 Tablet) 1 Each Tablet, 1 TAB PO Q6H Y for PAIN, #7 TAB Prov:DIEGO PADRON NP 04/27/16 Ibuprofen* (Motrin*) 600 Mg Tab, 600 MG PO Q6H Y for PAIN AND OR ELEVATED TEMP, #30 TAB Prov:DIEGO PADRON [employer] 04/27/16 Clonidine Hcl* (Clonidine Hcl*) 0.1 Mg Tab, 0.1 MG PO Q6 Y for CONTROL WITHDRAWAL SYMPTOMS, #20 TAB Prov:AISSATOU LEE 03/22/16 Lorazepam* (Lorazepam*) 1 Mg Tablet, 1 MG PO Q8H Y for ANXIETY, #20 TAB Prov:AISSATOU LEE 03/22/16 Hydrocodone Bit-Acetaminophen* ([place]*) 5-325 Mg Tab, 1 TAB PO Q6 Y for PAIN, # 20 TAB Prov:PATRICIO HARDY I. [employer] 08/11/15 Clindamycin Hcl* (Clindamycin Hcl*) 300 Mg Capsule, 450 MG PO TID for 10 Days, CAP Prov:PATRICIO HARDY [employer]. [employer] 08/11/15 Primary Care Provider [facility] MARGARITA Milner Mar 11, 2017 07:56
--- NOTE | 2017-03-11 13:46 | RADRPT ---
Echocardiogram Report Patient Name: SHEILA JIMÉNEZ Gender: Male Accession #: Date: 1985 Study Date: 09-Mar-2017 [employer]: ALEJANDRO Tucker Location: ER4 Ref. Physician: Quality: Technically Difficult Study Procedures: Transthoracic echocardiogram with complete 2D, M-Mode, and doppler examination. Indications: Arhythmia. 2D/M Mode Doppler Measurement Value Normal Ranges Measurement Value Normal Ranges LVIDd 2D 4.5 3.5 - 5.6 cm AV Peak Franco 1.1 m/sec LVIDs 2D 3.3 2.1 - 4.1 cm AV Peak PG 5.4 mmHg LVPWd 2D 1.2 0.6 - 1.1 cm LVOT Peak Franco 1.1 m/sec IVSd 2D 1.2 0.6 - 1.1 cm LVOT Peak PG 4.4 mmHg AoR Diam 2D 3.0 2.0 - 3.7 cm MV E Peak Franco 1.0 m/sec EDV 2D 92.8 cm3 MV A Peak Franco 0.7 m/sec ESV 2D 35.5 cm3 MV E/A 1.5 LA Dimen 2D 3.0 2.3 - 4.0 cm MV Decel Time 76 msec MV Decel [place] 14 MV E/A 1.5 TR Peak Franco 2.5 m/sec TR Peak PG 25.7 mmHg RVSP 35.7 mmHg Findings Left Ventricle: Normal left ventricular systolic function. Normal left ventricular cavity size. Mild concentric left ventricular hypertrophy. Ejection fraction is visually estimated at 55 %. Abnormal Diastolic Function. Right Ventricle: Normal right ventricular size. Normal right ventricular systolic function. Left Atrium: The left atrium is normal in size. Right Atrium: The right atrium is normal in size. Mitral Valve: Normal appearance of the mitral valve. Trace mitral regurgitation. Aortic Valve: Normal appearance of the aortic valve. No significant aortic stenosis or insufficiency. Tricuspid Valve: Estimated peak PA systolic pressure 35 mmHg. There is trace tricuspid regurgitation. Pulmonic Valve: Pulmonic valve not well visualized. There is trace pulmonic regurgitation. Pericardium: Normal pericardium with no significant pericardial effusion. Aorta: Normal aortic root. IVC: Dilated IVC with respiratory collapse consistent with elevated right atrial pressure. Pulmonary Artery: Normal pulmonary artery size. Conclusions 1.Normal left ventricular systolic function. Normal left ventricular cavity size. Mild concentric left ventricular hypertrophy. Ejection fraction is visually estimated at 55 %. Abnormal Diastolic Function. 2.The left atrium is normal in size. 3.Normal appearance of the mitral valve. Trace mitral regurgitation. 4.Normal appearance of the aortic valve. No significant aortic stenosis or insufficiency. 5.Estimated peak PA systolic pressure 35 mmHg. There is trace tricuspid regurgitation. Electronically Signed By: Devang Encarnacion 09-Mar-2017 18:23:27 -0700 Patient Name: SHEILA JIMÉNEZ Study Date: 09-Mar-2017 [id number]
--- NOTE | 2017-03-13 13:36 | RADRPT ---
Vent Rate: 143 bpm RR Interval: 0 msec UT Interval: 0 msec QRS Duration: 154 msec QT Interval: 364 msec QTC Interval: 561 msec P-R-T [place]: 0 - -46 - 119 degrees Atrial fibrillation with rapid ventricular response Left axis deviation Left ventricular hypertrophy with QRS widening Inferior infarct , age undetermined Abnormal ECG Electronically Signed By: Fernando Zhao [id number]
--- NOTE | 2017-03-13 14:02 | RADRPT ---
PROCEDURE: XR Chest. CLINICAL INDICATION: Chest pain TECHNIQUE: Single frontal view of the chest was obtained COMPARISON: 03/22/2016 FINDINGS: No pleural effusion or pneumothorax. No consolidation. Low lung volumes with bibasilar atelectasis. Stable top normal cardiomediastinal silhouette. No acute osseous abnormality. Large body habitus. IMPRESSION: Low lung volumes with bibasilar atelectasis. RPTAT: EE Physician Paolo Date Time Electronically viewed and signed by Physician Paolo on 03/09/2017 12:11 /
== END 2017-03-10 11:15 | disposition left against medical advice (07) | DRG 918 ==
LOC: E/R 11:44 → ICU 16:07
PROVIDERS: ADMIT Hospitalist; ATTEND Hospitalist
DX: T40.601A Poisoning by unspecified narcotics, accidental (unintentional), initial encounter (principal); Z68.43 Body mass index [BMI] 50.0-59.9, adult; I10 Essential (primary) hypertension; I48.91 Unspecified atrial fibrillation; T43.611A Poisoning by caffeine, accidental (unintentional), initial encounter; T43.621A Poisoning by amphetamines, accidental (unintentional), initial encounter; Y92.9 Unspecified place or not applicable; F17.200 Nicotine dependence, unspecified, uncomplicated; R00.2 Palpitations; R00.0 Tachycardia, unspecified; E66.9 Obesity, unspecified; Z53.21 Procedure and treatment not carried out due to patient leaving prior to being seen by health care provider
CPT/HCPCS: 36415; 71010; 80048; 80053; 80061; 80076; 80306; 80307; 82550; 82553; 83036; 83735; 83880; 84100; 84439; 84443; 84484; 85025; 85610; 85730; 86704; 86709; 86803; 87340; 93005; 93306; 96365; 96375; 96376; C9113; J0282; J1644; J2060; J2405; J2690; J3475; J7030; J7060

== ENCOUNTER 2017-08-20 20:38 | Emergency (ER) | END 2017-08-20 21:13 | disposition home or self-care (01) ==

== ENCOUNTER 2017-08-22 19:22 | Inpatient (IN) | END 2017-09-02 11:50 | disposition home or self-care (01) | DRG 309 ==

== ENCOUNTER 2017-10-19 06:14 | Inpatient (IN) | END 2017-10-22 22:34 | disposition left against medical advice (07) | DRG 281 ==

== ENCOUNTER 2017-11-04 17:33 | Inpatient (IN) | END 2017-11-05 13:50 | disposition home or self-care (01) | DRG 309 ==